=== PATIENT | male | born 1995 | race Caucasian/White ===

== ENCOUNTER 2020-01-01 17:20 | Emergency (ER) | payer OTHER ==
[~2020-01-01] VITALS: Ht 170.2 cm; Wt 71.2 kg
== END 2020-01-01 20:23 | disposition home or self-care (01) ==
LOC: ER 17:20
DX: S90.31XA Contusion of right foot, initial encounter (principal); W22.8XXA Striking against or struck by other objects, initial encounter
CPT/HCPCS: 73630; 99283-25